=== PATIENT | female | born 1980 | race Two or more races ===

== ENCOUNTER 2019-06-19 09:34 | Emergency (ER) | payer SELFPAY ==
[2019-06-19 09:38] VITALS: BP 123/81
[2019-06-19] MEDS ORDERED: CEPHALEXIN 500 MG CAPSULE PO ONE (09:49)
[2019-06-19] MEDS ORDERED: SULFAMETHOXAZOLE/TRIMETHOPRIM 800-160 MG TABLET PO ONE (09:49)
--- NOTE | 2019-06-19 09:54 | ER Document Report ---
ED Skin Rash/Insect Bite/Abscs - General Chief Complaint: Abscess Stated Complaint: VAGINAL PAIN Time Seen by Provider: 06/19/19 09:45 Mode of Arrival: Ambulatory Information source: Patient Notes: 38-year-old female presented to ED for abscess to the mons pubis x2. They are infected hair follicles. Patient is alert oriented respirations regular nonlabored speaking in full sentences walks with even steady gait. TRAVEL OUTSIDE OF THE [place] IN LAST 30 DAYS: No - HPI Patient complains to provider of: Tender/swollen area Onset: Other - About a month Onset/Duration: Gradual Quality of pain: Other Severity: Mild - Sore Pain Level: 1 Skin Character: Abscess Quality of rash: Painful - X2 Identify cause: Yes - Hair bump Exacerbated by: Denies Relieved by: Denies Similar symptoms previously: Yes Recently seen / treated by doctor: No - Related Data Allergies/Adverse Reactions: No Known Allergies Allergy (Verified 06/19/19 09:34) Past Medical History - General Information source: Patient - Social History Smoking Status: Never Smoker Frequency of alcohol use: None Drug Abuse: None Lives with: Family Family History: Reviewed & Not Pertinent Patient has suicidal ideation: No Patient has homicidal ideation: No - Past Medical History Cardiac Medical History: Reports: None Pulmonary Medical History: Reports: None EENT Medical History: Reports: None Neurological Medical History: Reports: None Endocrine Medical History: Reports: None Renal/ Medical History: Reports: None Malignancy Medical History: Reports: None GI Medical History: Reports: None Musculoskeletal Medical History: Reports None Skin Medical History: Reports None Psychiatric Medical History: Reports: None Traumatic Medical History: Reports: None Infectious Medical History: Reports: None Surgical Hx: Negative Past Surgical History: Reports: None - Immunizations Immunizations up to date: Yes Review of Systems - Review of Systems Constitutional: No symptoms reported EENT: No symptoms reported Cardiovascular: No symptoms reported Respiratory: No symptoms reported Gastrointestinal: No symptoms reported Genitourinary: No symptoms reported Female Genitourinary: No symptoms reported Musculoskeletal: No symptoms reported Skin: Other - Abscess mons pubis Hematologic/Lymphatic: No symptoms reported Neurological/Psychological: No symptoms reported -: Yes All other systems reviewed and negative Physical Exam - Vital signs Vitals: Temp Pulse Resp BP Pulse Ox 98.1 F 72 16 123/81 94 06/19/19 09:37 06/19/19 09:37 06/19/19 09:37 06/19/19 09:37 06/19/19 09:37 Interpretation: Normal - General General appearance: Appears well, Alert - HEENT Head: Normocephalic, Atraumatic Eyes: Normal Pupils: PERRL - Respiratory Respiratory status: No respiratory distress Chest status: Nontender Breath sounds: Normal Chest palpation: Normal - Cardiovascular Rhythm: Regular Heart sounds: Normal auscultation Murmur: No - Abdominal Inspection: Normal Distension: No distension Bowel sounds: Normal Tenderness: Nontender Organomegaly: No organomegaly - Back Back: Normal, Nontender - Extremities General upper extremity: Normal inspection, Nontender, Normal color, Normal ROM, Normal temperature General lower extremity: Normal inspection, Nontender, Normal color, Normal ROM, Normal temperature, Normal weight bearing. No: Guy's sign - Neurological Neuro grossly intact: Yes Cognition: Normal Orientation: AAOx4 [place] Coma Scale Eye Opening: Spontaneous Jose Coma Scale Verbal: Oriented [place] Coma Scale Motor: Obeys Commands [place] Coma Scale Total: 15 Speech: Normal Motor strength normal: LUE, RUE, LLE, RLE Sensory: Normal - Psychological Associated symptoms: Normal affect, Normal mood - Skin Skin Temperature: Warm Skin Moisture: Dry Skin Color: Normal Skin irregularity: Abscess - Months previous x2, Erythema - infected hair follicle Irregularity with: Swelling, Tenderness, Warmth Course - Re-evaluation Re-evalutation: 06/19/19 09:51 Patient was treated with Bactrim and Keflex given instructions on Epson salt soaks and clean the area well with soap and water not to shave and return to the ED or primary care doctor if this does not clear the area. - Vital Signs Vital signs: Temp Pulse Resp BP Pulse Ox 98.1 F 72 16 123/81 94 06/19/19 09:37 06/19/19 09:37 06/19/19 09:37 06/19/19 09:37 06/19/19 09:37 Discharge - Discharge Clinical Impression: Abscess mons pubis Condition: Stable Disposition: HOME, SELF-CARE Instructions: Family Physicians / Practices Additional Instructions: ABSCESS: You have an abscess (boil). This a pus-forming infection, usually due to staph. Some boils may be left to drain on their own, but most require lancing. From the time the tender lump first appears, it may be three or four days before the abscess is ready to brigitte. Local heat and rest help at this stage of treatment. An antibiotic may prevent spread of the infection. Once the abscess is opened, packing may be placed into it. This is done so pus is not sealed inside by premature closure of the cavity. The packing will be removed at your follow-up visit or you may be advised to remove it yourself at home. Sometimes this packing must be replaced a few times during healing. The wound will heal with surprisingly little scar. Depending on the size and location of an abscess, healing can take one to four weeks. You may shower and wash the area around the incision site two or three times a day. Antibiotics may be prescribed, but are usually not necessary after an abscess has been drained. If you develop fever, chills, worsening pain, or increasing swelling in the area, call the doctor or return immediately. Epsom Salt Soaks Soak the wound area in a container of warm epsom salt water. If you can't get the wound area into a bucket or daniels, use a folded towel soaked in the epsom salt solution and apply to the area. Use clean hot tap water (about the temperature of a very warm bath), mixing in about one (1) teaspoon for every pint of water. Two gallon --> 16 teaspoons Epsom Salts One gallon --> 8 teaspoons Epsom Salts Two quarts --> 4 teaspoons Epsom Salts One quart --> 2 teaspoons Epsom Salts Soak the wound for about 20 minutes while gently moving it around in the water. Repeat this four (4) times a day.\\ CEPHALEXIN: The antibiotic you've been prescribed is a member of the cephalosporin class. This type of antibiotic covers a wide variety of infections, including those of the skin, lungs, and urinary tract. It's useful for staph infections. This antibiotic is slightly similar to the penicillin family. In rare cases, a person who is allergic to penicillin will also be allergic to this medication. If you have had a severe allergic reaction to penicillin, and have not taken this antibiotic since that time, notify your doctor. Antibiotics which cover many germs ("broad spectrum" antibiotics) are more likely to cause diarrhea or "yeast" infections. Women prone to vaginal yeast problems may suffer an attack after taking this antibiotic. In infants, oral thrush (white spots "stuck" on the cheek) or yeast diaper rash may result. See your doctor if these problems occur. Call at once if you develop itching, hives, shortness of breath, or lightheadedness. TRIMETHOPRIM-SULFA: You have been given a prescription for trimethoprim-sulfa (TMS, Septra, Bactrim). This is a combination antibiotic of the sulfa class, often used for urinary tract infections, middle ear infections, bronchitis, shigella intestinal infection, and Pneumocystis pneumonia. TMS is usually well-tolerated. Occasional side effects include nausea and decreased appetite. Septra is not recommended for infants less than two months of age. Do not take this medication if you have experienced severe side effects or allergy to sulfa medicine. You should stop this medicine at once and contact your physician if you develop any rash, joint pain, shortness of breath, bruising, or jaundice (yellow color in the skin), or if you develop any other new or unusual symptoms. FOLLOW-UP CARE: Most simple abscesses will not require a follow up visit. If you had packing placed in the abscess, remove it as instructed by the physician. If you have been referred to a physician for follow-up care, call the physicians office for an appointment as you were instructed or within the next two days. If you experience worsening or a significant change in your symptoms, return to the Emergency Department at any time for re-evaluation. Prescriptions: Cephalexin Monohydrate [Keflex 500 mg Capsule] 500 mg PO QID #20 capsule Sulfamethoxazole/Trimethoprim [Bactrim Ds Tablet] 1 each PO BID #20 tablet Forms: Return to Work
== END 2019-06-19 10:04 | disposition home or self-care (01) ==
LOC: ER 09:34
DX: L02.215 Cutaneous abscess of perineum (principal)
CPT/HCPCS: 99283

== ENCOUNTER 2019-07-01 09:48 | Emergency (ER) | payer SELFPAY ==
[2019-07-01] MEDS ORDERED: VALACYCLOVIR HCL 500 MG TABLET PO ONE (10:35)
[2019-07-01] MEDS ORDERED: FLUCONAZOLE 100 MG TABLET PO ONE (10:36)
[2019-07-01] MEDS ORDERED: LIDOCAINE 1% INJ (10 MG/ML) 10 ML MDV INJ ONE (10:37)
[2019-07-01] MEDS ORDERED: AZITHROMYCIN 250 MG TABLET PO ONE (10:37)
[2019-07-01] MEDS ORDERED: CEFTRIAXONE INJ 250 MG VIAL IM ONE (10:37)
--- NOTE | 2019-07-01 10:39 | ER Document Report ---
HPI - HPI Patient complains to provider of: vaginal discharge Time Seen by Provider: 07/01/19 10:02 Onset: Last week Onset/Duration: Persistent Quality of pain: Burning Pain Level: 1 Context: Patient presents complaining of vaginal discharge for the past week. Patient is concerned that she may have a yeast infection. Patient also noticed some bumps to the left buttock area. Patient denies any fever. Associated Symptoms: Other - Vaginal discharge, skin rash. denies: Fever, Headache, Vomiting Exacerbated by: Denies Relieved by: Denies Similar symptoms previously: No Recently seen / treated by doctor: No - ROS ROS below otherwise negative: Yes Systems Reviewed and Negative: Yes All other systems reviewed and negative - CONSTITUTIONAL Constitutional: DENIES: Fever, Chills - GASTROINTESTINAL Gastrointestinal: DENIES: Abdominal Pain, Nausea, Patient vomiting - URINARY Urinary: DENIES: Dysuria - REPRODUCTIVE Reproductive: REPORTS: Abnormal bleeding / discharge. DENIES: : - MUSCULOSKELETAL Musculoskeletal: DENIES: Extremity pain - DERM Skin Problems: Rash Past Medical History - General Information source: Patient - Social History Smoking Status: Never Smoker Frequency of alcohol use: None Drug Abuse: None Occupation: [email or web address] Family History: Reviewed & Not Pertinent - Medical History Medical History: Negative Renal/ Medical History: Denies: Hx Peritoneal Dialysis Surgical Hx: Negative - Immunizations Immunizations up to date: Yes Vertical Provider Document - CONSTITUTIONAL Agree With Documented VS: Yes Exam Limitations: No Limitations General Appearance: WD/WN, No Apparent Distress - INFECTION CONTROL TRAVEL OUTSIDE OF THE [place] IN LAST 30 DAYS: No - HEENT HEENT: Atraumatic, Normocephalic - NECK Neck: Normal Inspection, Supple - RESPIRATORY Respiratory: Breath Sounds Normal, No Respiratory Distress - CARDIOVASCULAR Cardiovascular: Regular Rate, Regular Rhythm - GI/ABDOMEN Gastrointestinal: Abdomen Soft, Abdomen Non-Tender - REPRODUCTIVE Female Genitalia: Abnormal Inspection - Patient with shallow painful ulceration near vaginal introitus - BACK Back: Normal Inspection - MUSCULOSKELETAL/EXTREMETIES Musculoskeletal/Extremeties: LAYNE RIBERA - NEURO Level of Consciousness: Awake, Alert, Appropriate Motor/Sensory: No Motor Deficit - DERM Integumentary: Warm, Dry, Abscess - Vesicular lesions in a cluster pattern to left buttock Course - Re-evaluation Re-evalutation: 07/01/19 10:37 Patient with skin lesions worrisome for herpes infection. Culture will be obtained. Offered patient pelvic examination to evaluate her vaginal discharge. Patient is agreeable with prophylactic treatment and prefers to self swab at this time. - Vital Signs Vital signs: Temp Pulse Resp BP Pulse Ox 98.1 F 94 16 126/90 H 92 07/01/19 09:54 07/01/19 09:54 07/01/19 09:54 07/01/19 09:54 07/01/19 09:54 Discharge - Discharge Clinical Impression: Vaginal discharge Herpes genitalis Qualifiers: Herpes simplex infection site: unspecified Qualified Code(s): A60.00 - Herpesviral infection of urogenital system, unspecified Condition: Stable Disposition: HOME, SELF-CARE Instructions: Genital Herpes ([facility]), Vaginal Yeast Infection ([facility]) Additional Instructions: Return immediately for any new or worsening symptoms Followup with your primary care provider, call tomorrow to make a followup appointment Prescriptions: Valacyclovir HCl [Valacyclovir] 1,000 mg PO TID #21 tablet Forms: Return to Work Referrals: [facility] [Provider Group] - Follow up as needed
[2019-07-01 11:13] LABS: RBCS (WET MOUNT) NO RBCS SEEN; T.VAGINALIS (WET MOUNT) NO TRICHOMONAS SEEN; WBCS (WET MOUNT) RARE WBCS SEEN; YEAST (WET MOUNT) NO YEAST SEEN
[2019-07-01 12:03] VITALS: BP 116/82
[2019-07-01 12:38] LABS: CHLAM PCR NOT DETECTED (NOT DETECT)
== END 2019-07-01 12:00 | disposition home or self-care (01) ==
LOC: ER 09:48
DX: N89.8 Other specified noninflammatory disorders of vagina (principal); A60.00 Herpesviral infection of urogenital system, unspecified
CPT/HCPCS: 87210; 87250; 87491; 87591; J0696; 96372; 99283